=== PATIENT | male | born 1970 | race Two or more races ===

== ENCOUNTER 2018-10-05 12:39 | Outpatient (CLI) | payer OTHER ==
[~2018-10-05 12:39] MED LIST: GILTUSS TR TAB1 EACH PO; GLUCOPHAGE XR500 MG; METOPROLOL SUCC50 MG; NEURONTIN300 MG; PRAVACHOL80 MG; VISTARIL50 MG PO; ZYRTEC10 MG PO
== END 2018-10-05 12:42 | disposition home or self-care (01) ==
LOC: LAB 12:39
DX: R10.84 Generalized abdominal pain (principal); Z00.00 Encounter for general adult medical examination without abnormal findings

== ENCOUNTER 2019-05-07 09:55 | Outpatient (CLI) | payer OTHER | END 2019-05-07 13:41 | disposition home or self-care (01) | LOC: LAB 09:55 | DX: E78.49 Other hyperlipidemia (principal); Z00.00 Encounter for general adult medical examination without abnormal findings; R42 Dizziness and giddiness ==

== ENCOUNTER → 2019-08-01 13:15 | Outpatient (CLI) | payer OTHER | END | disposition home or self-care (01) | LOC: LAB 13:15 | DX: N39.0 Urinary tract infection, site not specified (principal) ==

== ENCOUNTER → 2019-08-05 14:29 | Outpatient (CLI) | payer OTHER | END | disposition home or self-care (01) | LOC: LAB 14:29 | DX: N40.1 Benign prostatic hyperplasia with lower urinary tract symptoms (principal) ==

== ENCOUNTER 2019-10-26 09:49 | Outpatient (CLI) | payer OTHER | END 2019-10-26 14:11 | disposition home or self-care (01) | LOC: LAB 09:49 | DX: R06.02 Shortness of breath (principal); Z00.00 Encounter for general adult medical examination without abnormal findings; K21.9 Gastro-esophageal reflux disease without esophagitis ==

== ENCOUNTER → 2019-10-26 | Outpatient (CLI) | payer OTHER | END | disposition home or self-care (01) | LOC: RAD 11:20 | DX: R06.02 Shortness of breath (principal); Z13.6 Encounter for screening for cardiovascular disorders ==

== ENCOUNTER 2019-11-17 12:44 | Outpatient (CLI) | payer OTHER | END 2019-11-17 12:48 | disposition home or self-care (01) | LOC: EKG 12:44 | DX: R06.02 Shortness of breath (principal); Z13.6 Encounter for screening for cardiovascular disorders ==

== ENCOUNTER 2020-07-28 17:33 | Emergency (ER) | payer OTHER ==
[~2020-07-28] VITALS: Ht 170.2 cm; Wt 70.8 kg
== END 2020-07-28 23:00 | disposition home or self-care (01) ==
LOC: ER 17:33
DX: R10.32 Left lower quadrant pain (principal)

== ENCOUNTER 2020-09-26 07:59 | Outpatient (CLI) | payer OTHER | END 2020-09-26 08:04 | disposition home or self-care (01) | LOC: RX STUDY 07:59 | PROVIDERS: ATTEND Internal Medicine Gastroenterology | DX: K44.9 Diaphragmatic hernia without obstruction or gangrene (principal); K21.00 Gastro-esophageal reflux disease with esophagitis, without bleeding; D13.1 Benign neoplasm of stomach; R13.14 Dysphagia, pharyngoesophageal phase; Z12.11 Encounter for screening for malignant neoplasm of colon ==

== ENCOUNTER 2020-10-22 14:23 | Outpatient (CLI) | payer OTHER | END 2020-10-22 14:24 | disposition home or self-care (01) | LOC: RAD 14:23 | PROVIDERS: ATTEND General Practice | DX: R05 Cough (principal) ==

== ENCOUNTER 2020-10-22 15:39 | Outpatient (CLI) | payer OTHER | END 2020-10-22 15:52 | disposition home or self-care (01) | LOC: LAB 15:39 | DX: R05 Cough (principal); Z20.828 Contact with and (suspected) exposure to other viral communicable diseases ==

== ENCOUNTER 2020-10-22 15:47 | Outpatient (CLI) | payer OTHER | END 2020-10-22 15:52 | disposition home or self-care (01) | LOC: LAB 15:47 | PROVIDERS: ATTEND General Practice | DX: J02.8 Acute pharyngitis due to other specified organisms (principal); Z11.3 Encounter for screening for infections with a predominantly sexual mode of transmission ==

== ENCOUNTER → 2021-06-20 | Emergency (ER) | payer OTHER ==
[~2021-06-20] VITALS: Ht 170.2 cm; Wt 72.6 kg
== END | disposition home or self-care (01) ==
LOC: ER 12:28
DX: R05 Cough (principal); R53.81 Other malaise

== ENCOUNTER → 2021-08-19 | Outpatient (CLI) | payer OTHER ==
[~2021-08-19] MED LIST changes: +IBU800 MG PO; +KETO10TA2 PO; +MEDROLPACK PO; +NORFLEX100MG PO
== END | disposition home or self-care (01) ==
LOC: PPH VACUNA 08:00
PROVIDERS: ATTEND Emergency Medicine Pediatric Emergency Medicine
DX: Z23 Encounter for immunization (principal)

== ENCOUNTER 2021-08-23 18:05 | Emergency (ER) | payer OTHER ==
[~2021-08-23] VITALS: Ht 170.2 cm; Wt 74.8 kg
[~2021-08-23 18:05] MED LIST changes: -IBU800 MG PO; -KETO10TA2 PO; -MEDROLPACK PO; -NORFLEX100MG PO
[2021-08-23] MEDS ORDERED: IBU800 MG PO (20:37)
== END 2021-08-23 20:55 | disposition home or self-care (01) ==
LOC: ER 18:05
DX: M54.59 Other low back pain (principal)

== ENCOUNTER 2021-08-26 20:37 | Emergency (ER) | payer OTHER ==
[~2021-08-26] VITALS: Ht 170.2 cm; Wt 79.4 kg
[~2021-08-26 20:37] MED LIST changes: +IBU800 MG PO
[2021-08-26] MEDS ORDERED: NORFLEX100MG PO (22:02)
[2021-08-26] MEDS ORDERED: MEDROLPACK PO (22:02)
[2021-08-26] MEDS ORDERED: KETO10TA2 PO (22:02)
== END 2021-08-26 22:43 | disposition home or self-care (01) ==
LOC: ER 20:37
DX: M54.59 Other low back pain (principal)

== ENCOUNTER 2021-11-28 11:17 | Emergency (ER) | payer OTHER ==
[~2021-11-28] VITALS: Ht 170.2 cm; Wt 79.4 kg
[~2021-11-28 11:17] MED LIST changes: +KETO10TA2 PO; +MEDROLPACK PO; +NORFLEX100MG PO
== END 2021-11-28 13:24 | disposition home or self-care (01) ==
LOC: ER 11:17
DX: B34.9 Viral infection, unspecified (principal)

== ENCOUNTER 2022-01-23 08:41 | Emergency (ER) | payer OTHER ==
[~2022-01-23] VITALS: Ht 170.2 cm; Wt 76.2 kg
[2022-01-23] MEDS ORDERED: PRILOSEC OTC20 MG (08:48)
== END 2022-01-23 15:27 | disposition home or self-care (01) ==
LOC: ER 08:41
DX: R10.84 Generalized abdominal pain (principal)

== ENCOUNTER 2022-01-28 07:32 | Emergency (ER) | payer OTHER ==
[~2022-01-28] VITALS: Ht 170.2 cm; Wt 76.7 kg
[~2022-01-28 07:32] MED LIST changes: +PRILOSEC OTC20 MG
== END 2022-01-28 12:50 | disposition home or self-care (01) ==
LOC: ER 07:32
DX: K80.20 Calculus of gallbladder without cholecystitis without obstruction (principal); R10.9 Unspecified abdominal pain

== ENCOUNTER 2022-02-15 08:59 | Outpatient (CLI) | payer OTHER | END 2022-02-15 09:09 | disposition home or self-care (01) | LOC: LAB 08:59 | PROVIDERS: ATTEND Surgery | DX: K81.1 Chronic cholecystitis (principal); R10.11 Right upper quadrant pain ==

== ENCOUNTER 2022-02-21 09:32 | Inpatient (IN) | payer OTHER ==
[2022-02-25] MEDS ORDERED: PRILOSEC OTC20 MG PO (13:17)
== END 2022-02-25 15:42 | disposition home or self-care (01) | DRG 419 ==
LOC: CIR.AMB 09:32 → O/R 15:53 → SURH 16:42
PROVIDERS: ADMIT Surgery; ATTEND Surgery
PROC: 3E0F7SF Introduction of Other Gas into Respiratory Tract, Via Natural or Artificial Opening (ICD-10-PCS; 2022-02-21)
PROC: 0FT44ZZ Resection of Gallbladder, Percutaneous Endoscopic Approach (ICD-10-PCS; principal; 2022-02-21 10:15)
PROC: BW30YZZ Magnetic Resonance Imaging (MRI) of Abdomen using Other Contrast (ICD-10-PCS; 2022-02-24)
DX: K80.10 Calculus of gallbladder with chronic cholecystitis without obstruction (principal); K11.20 Sialoadenitis, unspecified
CPT/HCPCS: 74182

== ENCOUNTER 2022-04-19 10:16 | Outpatient (CLI) | payer OTHER ==
[~2022-04-19 10:16] MED LIST changes: +PRILOSEC OTC20 MG PO
== END 2022-04-19 10:20 | disposition home or self-care (01) ==
LOC: LAB 10:16
PROVIDERS: ATTEND General Practice
DX: R07.0 Pain in throat (principal)

== ENCOUNTER 2022-05-17 14:09 | Outpatient (CLI) | payer OTHER | END 2022-05-17 14:11 | disposition home or self-care (01) | LOC: LAB 14:09 | PROVIDERS: ATTEND Internal Medicine Gastroenterology | DX: R74.01 Elevation of levels of liver transaminase levels (principal) ==

== ENCOUNTER 2022-05-24 11:22 | Outpatient (CLI) | payer OTHER | END 2022-05-24 12:06 | disposition home or self-care (01) | LOC: LAB 11:22 | PROVIDERS: ATTEND Internal Medicine | DX: U07.1 COVID-19 (principal) ==

== ENCOUNTER 2022-08-13 09:59 | Outpatient (CLI) | payer OTHER | END 2022-08-13 10:04 | disposition home or self-care (01) | LOC: PPH VACUNA 09:59 | PROVIDERS: ATTEND Emergency Medicine Pediatric Emergency Medicine | DX: Z23 Encounter for immunization (principal) ==

== ENCOUNTER 2022-11-12 09:35 | Outpatient (CLI) | payer OTHER | END 2022-11-12 09:41 | disposition home or self-care (01) | LOC: LAB 09:35 | PROVIDERS: ATTEND Emergency Medicine Pediatric Emergency Medicine | DX: Z00.00 Encounter for general adult medical examination without abnormal findings (principal); E78.5 Hyperlipidemia, unspecified; E55.9 Vitamin D deficiency, unspecified; N39.0 Urinary tract infection, site not specified; Z12.5 Encounter for screening for malignant neoplasm of prostate; R42 Dizziness and giddiness; R10.9 Unspecified abdominal pain ==

== ENCOUNTER → 2022-11-26 10:42 | Outpatient (CLI) | payer OTHER | END | disposition home or self-care (01) | LOC: LAB 10:42 | DX: U07.1 COVID-19 (principal) ==

== ENCOUNTER 2022-12-19 19:01 | Emergency (ER) | payer OTHER ==
[~2022-12-19] VITALS: Ht 170.2 cm; Wt 70.3 kg
== END 2022-12-19 21:19 | disposition home or self-care (01) ==
LOC: ER 19:01
DX: U07.1 COVID-19 (principal)

== ENCOUNTER 2023-04-09 18:49 | Emergency (ER) | payer OTHER ==
[~2023-04-09] VITALS: Ht 170.2 cm; Wt 70.3 kg
[2023-04-09] MEDS ORDERED: PRILOSEC OTC20 MG PO (19:08)
[2023-04-09] MEDS ORDERED: METOCLOPRAMIDE10 MG PO (20:57)
== END 2023-04-09 21:48 | disposition home or self-care (01) ==
LOC: ER 18:49
DX: K29.00 Acute gastritis without bleeding (principal)

== ENCOUNTER 2023-05-01 08:14 | Outpatient (CLI) | payer OTHER ==
[~2023-05-01 08:14] MED LIST changes: +METOCLOPRAMIDE10 MG PO
== END 2023-05-01 08:15 | disposition home or self-care (01) ==
LOC: LAB 08:14
PROVIDERS: ATTEND General Practice
DX: E55.9 Vitamin D deficiency, unspecified (principal); E78.5 Hyperlipidemia, unspecified; R10.9 Unspecified abdominal pain; N39.0 Urinary tract infection, site not specified; R42 Dizziness and giddiness; Z12.5 Encounter for screening for malignant neoplasm of prostate; Z00.00 Encounter for general adult medical examination without abnormal findings

== ENCOUNTER 2023-08-14 10:35 | Outpatient (CLI) | payer OTHER | END 2023-08-14 10:45 | disposition home or self-care (01) | LOC: PPH VACUNA 10:35 | PROVIDERS: ATTEND Emergency Medicine Pediatric Emergency Medicine | DX: Z23 Encounter for immunization (principal) | CPT/HCPCS: 90686; G0008 ==

== ENCOUNTER → 2023-09-07 06:23 | Outpatient (CLI) | payer OTHER ==
[2023-09-07 07:28] LABS: CALCIUM 9.1 mg/dL (8.5-10.1); CREATININE SERUM 0.86 mg/dL (0.70-1.30); GFR 93.02; POTASSIUM 4.18 mEq/L (3.5-5.1); PROSTATIC SPECIFIC ANTIGEN 1.83 NG/ML (0.010-4.00)
[2023-09-07 09:50] LABS: URINE APPEARANCE Clear; URINE BILIRRUBIN Negative (NEGATIVE); URINE BLOOD Negative; URINE COLOR Yellow; URINE GLUCOSE Negative (NEGATIVE); URINE LEUKOCYTE Negative; URINE NITRATE Negative; URINE PROTEIN Negative (NEGATIVE); URINE UROBILINOGEN 0.2 E.U./dl
[2023-09-07 09:55] LABS: URINE EPITHELIAL CELLS 2.6 uL (0.0-38.8); URINE WBC 4.9 uL (0.0-23.2)
[2023-09-07 10:33] LABS: URINE RBC 1.1 uL (0.0-20.8)
== END | disposition home or self-care (01) ==
LOC: LAB 06:23
PROVIDERS: ATTEND Urology
DX: R97.21 Rising PSA following treatment for malignant neoplasm of prostate (principal)

== ENCOUNTER 2024-01-21 08:18 | Outpatient (CLI) | payer OTHER ==
[2024-01-21 09:36] LABS: ALBUMIN 4.2 gm/dL (3.4-5.0); BILIRUBIN TOTAL 1.48 mg/dL (0.3-1.2); BILIRUBIN,CONJUGATED 0.27 mg/dL (0.0-0.2); BILIRUBIN,UNCONJUGATED 1.21 mg/dL (0.0-0.6); TOTAL PROTEIN 7.4 gm/dL (6.4-8.2)
== END 2024-01-21 14:31 | disposition home or self-care (01) ==
LOC: LAB 08:18
PROVIDERS: ATTEND Internal Medicine Gastroenterology
DX: R74.01 Elevation of levels of liver transaminase levels (principal); K21.9 Gastro-esophageal reflux disease without esophagitis; K44.9 Diaphragmatic hernia without obstruction or gangrene; K30 Functional dyspepsia

== ENCOUNTER 2024-10-05 11:00 | Outpatient (CLI) | payer OTHER | END 2024-10-05 12:00 | disposition home or self-care (01) | LOC: PPH VACUNA 11:00 | PROVIDERS: ATTEND Emergency Medicine Pediatric Emergency Medicine | DX: Z23 Encounter for immunization (principal) ==

== ENCOUNTER 2024-12-29 04:42 | Emergency (ER) | payer OTHER ==
[~2024-12-29] VITALS: Ht 170.2 cm; Wt 80.7 kg
[2024-12-29] MEDS ORDERED: KETOROLAC TROMETHAMINE 60 MG VIAL IM STA (05:28)
[2024-12-29] MEDS ORDERED: ORPHENADRINE CITRATE 30 MG/ML AMPUL IM STA (05:29)
[2024-12-29] MEDS ORDERED: ORPHENADRINE CITRATE 30 MG/ML AMPUL ONE (05:42)
[2024-12-29] MEDS ORDERED: NORFLEX100MG PO (05:43)
[2024-12-29] MEDS ORDERED: KETOROLAC TROMETHAMINE 60 MG VIAL IM ONE (05:43)
[2024-12-29] MEDS ORDERED: KETO10TA2 PO (05:43)
== END 2024-12-29 05:48 | disposition home or self-care (01) ==
LOC: ER 04:44
DX: M54.50 Low back pain, unspecified (principal)

== ENCOUNTER → 2025-01-10 13:25 | Outpatient (CLI) | payer OTHER ==
[2025-01-12 06:09] LABS: HEPATITIS A ANTIBODY IGG Negative (Negative); HEPATITIS B SURFACE ANTIBODY Non Reactive (.); HEPATITIS C VIRUS ANTIBODY Non Reactive (Non Reactive)
== END | disposition home or self-care (01) ==
LOC: LAB 13:25
DX: A64 Unspecified sexually transmitted disease (principal); B19.9 Unspecified viral hepatitis without hepatic coma